=== PATIENT | male | born 1990 | race Caucasian/White ===

== ENCOUNTER 2022-03-09 16:57 | Inpatient (IN) | payer OTHER ==
[~2022-03-09] VITALS: Ht 177.8 cm; Wt 112.1 kg
--- NOTE | 2022-03-09 17:18 | NUR ---
c/o R hip pain pos dislocation while on rehabilitation. PLACED ON BED, AAOX4, BREATHING EVEN AND UNLABORED SATURATING AT 98%RA, IN PAIN 10/10 PS
[2022-03-09] MEDS ORDERED: HYDROMORPHONE INJ 2 MG/ML DISP.SYRIN IV ONE (17:30)
[2022-03-09] MEDS ORDERED: ONDANSETRON HCL/PF 4 MG/2 ML VIAL IVP ONE (17:30)
[2022-03-09] MEDS ORDERED: HYDROMORPHONE 1 MG/1 ML DISP.SYRIN ONE ×2 (17:39→19:10)
[2022-03-09] MEDS ORDERED: ONDANSETRON HCL/PF 4 MG/2 ML VIAL ONE ×2 (17:39→19:15)
--- NOTE | 2022-03-09 17:52 | NUR ---
X-RAY TECH AT BEDSIDE
[2022-03-09] MEDS ORDERED: PROPOFOL 20 ML IV ONE (18:16)
--- NOTE | 2022-03-09 18:23 | NUR ---
CLOSE REDUCTION OF RIGHT HIP DONE BY DR WILBURN WITH DIPRIVAN 200MG IN 4 DIVIDED DOSE. BP-163/98, OK-73, SATS- 99%. SPONSORSHIP MANAGER. AT BEDSIDE.
[2022-03-09] MEDS ORDERED: PROPOFOL 200 MG/20 ML VIAL IV ONE ×3 (18:30→19:00)
--- NOTE | 2022-03-09 18:52 | NUR ---
SWAB FOR COVID19 SENT TO LAB
[2022-03-09] MEDS ORDERED: ONDANSETRON HCL/PF - ER 4 MG/2 ML VIAL IV ONE (19:30)
[2022-03-09] MEDS ORDERED: HYDROMORPHONE 1 MG/1 ML DISP.SYRIN IV ONE (19:30)
[2022-03-09] MEDS ORDERED: TEMAZEPAM 15 MG CAPSULE PO PRN (20:00)
[2022-03-09] MEDS ORDERED: ENOXAPARIN SODIUM 40 MG/0.4 ML DISP.SYRIN SQ SCH (20:00)
[2022-03-09] MEDS ORDERED: MAG HYDROX/AL HYDROX/SIMETH 30 ML UDC PO PRN (20:00)
[2022-03-09] MEDS ORDERED: IV NS 0.9% 1,000 ML IV PRN (20:00)
[2022-03-09] MEDS ORDERED: MAGNESIUM HYDROXIDE 30 ML UDC PO PRN (20:00)
[2022-03-09] MEDS ORDERED: Z GUARD REMEDY 4 OZ OINT TP PRN (20:00)
[2022-03-09] MEDS ORDERED: HYDROCODONE/APAP 5/325MG TABLET PO PRN (20:00)
[2022-03-09 20:37] LABS: BASOPHILS % (AUTO) 0.8 % (0.0-2.0); CALCIUM, SERUM 8.6 mg/dL (8.5-10.1); CREATININE 1.4 mg/dL (0.6-1.3); EOSINOPHILS % (AUTO) 1.2 % (0.0-6.0); HEMATOCRIT 41 % (39-51); HEMOGLOBIN 13.3 g/dL (13.5-17.5); LYMPHOCYTES # (AUTO) 1.7 K/uL (0.8-4.8); LYMPHOCYTES % (AUTO) 38.4 % (20.0-44.0); MEAN CORPUSCULAR HGB CONC 32 g/dl (31.0-36.0); MEAN CORPUSCULAR VOLUME 84 fL (80-96); MONOCYTES # (AUTO) 0.4 K/uL (0.1-1.30); MONOCYTES % (AUTO) 8.8 % (2.0-12.0); NEUTROPHILS # (AUTO) 2.2 K/uL (1.8-8.9); NEUTROPHILS % (AUTO) 50.8 % (43.0-81.0); PLATELET COUNT (AUTO) 242 K/uL (150-450); POTASSIUM 2.9 mmol/L (3.5-5.1); RED BLOOD CELL COUNT(AUTO) 4.95 MIL/uL (4.5-6.0); WHITE BLOOD COUNT (AUTO) 4.4 K/uL (4.3-11.0)
[2022-03-09 20:38] LABS: CALCIUM, SERUM 8.7 mg/dL (8.5-10.1); CREATININE 1.3 mg/dL (0.6-1.3); POTASSIUM 2.9 mmol/L (3.5-5.1)
[2022-03-09 20:43] LABS: ALBUMIN 3.9 g/dL (3.4-5.0); BILIRUBIN,TOTAL 0.4 mg/dL (0.2-1.0); TOTAL PROTEIN, SERUM 7.9 g/dL (6.4-8.2)
--- NOTE | 2022-03-09 21:01 | NUR ---
BED 321-2
--- NOTE | 2022-03-09 21:19 | NUR ---
REPORT GIVEN TO SHARITA RN ROOM 321-2 FOR HEMAL
--- NOTE | 2022-03-09 22:00 | NUR ---
NOC RN NOTE PATIENT VERY UPSET UPON ARRIVAL, WANTING TO TALK TO CHARGE NURSE AND TO QUOTE "I WANT TO TALK TO WHOEVER IS IN CHARGE. I AM GOING TO FILE A COMPLAINT SO THEY KNOW THAT I AM SERIOUS. I WILL HAVE MY CNC OPERATOR PROGRAMMER COME HERE" MADE CHARGE NURSESTEPHANIE TALKED WITH PATIENT. WILL LET NURSING SYRUP MAKER COOK AWARE ABOUT SITUATION.
[2022-03-09] MEDS: ONDANSETRON HCL/PF 4 MG/2 ML VIAL IVP PRN (22:13)
[2022-03-09] MEDS: MORPHINE SULFATE INJ 2 MG/ML DISP.SYRIN IV PRN (22:14)
--- NOTE | 2022-03-09 23:00 | NUR ---
NOC RN NOTE NURSING GROUNDSKEEPER SUPERVISOR, JIM RIVERA AWARE OF SITUATION AND TALKED TO PATIENT. PER NURSING GROUNDSKEEPER SUPERVISOR, PATIENT JUST WANTS TO FILE AN OFFICIAL COMPLAINT. WILL FILL OUT A RISK INCIDENT REPORT.
--- NOTE | 2022-03-09 23:40 | NUR ---
NOC RN NOTE MED RECON DONE. PATIENT BEEN ASKING FOR HIS DOVATO 50-300MG HIV MEDICATION BUT WE DO NOT HAVE IT ON THE FLOOR. EVEN LOOKED UP THE SUB MEDICATION PATIENT REQUESTED TIVICAY DESCOVY OR TRUVADA. PATIENT MADE AWARE THAT WE WILL NOT HAVE IT TILL THE AM SINCE PHARMACY IS THE ONE TO DISPENSE IT, PATIENT FAIRLY UPSET. MATERIALS PLANNING MANAGER IS AWARE AND SAID THE SAME THING.
[2022-03-09] MEDS ORDERED: DOCU100C36 PO (23:50)
[2022-03-09] MEDS ORDERED: IBUP-1955 PO (23:50)
[2022-03-09] MEDS ORDERED: CHLO25TA2 PO (23:50)
[2022-03-09] MEDS ORDERED: DOLU1TAB2 PO (23:50)
[2022-03-09] MEDS ORDERED: ONDA-97 PO (23:50)
[2022-03-09] MEDS ORDERED: D-AM5CAP2 PO (23:50)
[2022-03-09] MEDS ORDERED: PREG150C PO (23:50)
[2022-03-09] MEDS ORDERED: HYDR-3980 PO (23:50)
[2022-03-09] MEDS ORDERED: ASPI-1169 PO (23:50)
[2022-03-09] MEDS ORDERED: DEXL60CA3 PO (23:50)
[2022-03-09] MEDS ORDERED: ECON15CR2 TP (23:50)
[2022-03-09] MEDS ORDERED: FLUN25SP NS (23:50)
[2022-03-10] MEDS ORDERED: FLUNISOLIDE NS SCH
[2022-03-10] MEDS ORDERED: ZOLPIDEM TARTRATE 5 MG TABLET PO PRN (00:30)
--- NOTE | 2022-03-10 00:49 | NUR ---
NOC RN NOTE GIVEN AMBIEN 5MG BESIDE THE FACT PATIENT IS NPO POST [place] FOR PROCEDURE PER PATIENT REQUEST. COW TESTER LUDWIN CLAY DNP AWARE. CHARGE NURSE AWARE WELL AND OK'D IT.
--- NOTE | 2022-03-10 00:53 | NUR ---
NOC RN NOTE PATIENT NOT WANTING TO SIGN CONSENT FORM FOR PROCEDURE TOMORROW NOT BEFORE TALKING TO DOCTOR YORDAN. NURSING SPONGE PRESS OPERATOR, JIM RIVERA AWARE.
--- NOTE | 2022-03-10 01:04 | NUR ---
ADMISSION RN NOTE PATIENT BROUGHT UP IN UNIT AT AROUND 2140 ACCOMPANIED BY 2 ER PERSONNELS. A/OX4. PATIENT WAS VERY UPSET UPON ADMISSION AND WANTING TO FILE COMPLAINT-- CHARGE NURSE AND NURSING INDUSTRIAL GAS FITTER TALKED TO THE PATIENT AND THERAPEUTIC COMMUNICATION WAS DONE. NO S/S OF APPARENT DISTRESS ON ROOM AIR AND C/O PAIN ON HIS R. HIP-- MEDICATED. IV ACCESS ON LEFT AC #20G-- STARTED ON NS @75MLS/HR ORDERED. PATIENT WISHING TO BE FULL CODE. NEW ID BAND ON PATIENT. ORIENTED IN THE UNIT AND THE USED OF CALL LIGHT. PATIENT BELONGINGS CHECKED. IN FOR CLOSED REDUCTION IN THE AM. PATIENT AWARE OF NPO STATUS. WILL CONTINUE WITH THE PLAN OF CARE FOR PATIENT.
[2022-03-10] MEDS ORDERED: POTASSIUM CHLORIDE 10 MEQ/50 ML PREMIXED IVPB FOR PERIPHERAL LINE IV ONE (04:30)
[2022-03-10] MEDS: ONDANSETRON HCL/PF 4 MG/2 ML VIAL IVP PRN (04:48)
[2022-03-10] MEDS: MORPHINE SULFATE INJ 2 MG/ML DISP.SYRIN IV PRN (04:49)
[2022-03-10 07:00] VITALS: BP 136/85
--- NOTE | 2022-03-10 07:14 | NUR ---
CALLED PHARMACY AT THIS TIME IN REGARDS TO THE HOME MEDICATION OF PATIENT (DOVATO) PER PHARMACY THEY DO NOT CARRY THE MEDICATION AND THE BEST IS FOR PATIENT HAVE SOMEONE BRING HIM HIS MEDICATION. I TOLD PHARMACY THAT PER PATIENT NO ONE IS ABLE TO BRING IT IN THE HOSPITAL AND THAT HAS BEEN THE CONCERN OF HIM SINCE LAST NIGHT. PHARMACIST DID SAY THEY WILL FIND OUT WHAT OTHER MEDICATION THEY COULD GIVE INSTEAD OF DOVATO. PHARMACY TO CALL AGAIN.
[2022-03-10 07:19] LABS: BASOPHILS % (AUTO) 0.6 % (0.0-2.0); EOSINOPHILS % (AUTO) 4.2 % (0.0-6.0); HEMATOCRIT 43 % (39-51); HEMOGLOBIN 13.6 g/dL (13.5-17.5); LYMPHOCYTES # (AUTO) 2.1 K/uL (0.8-4.8); MEAN CORPUSCULAR HGB CONC 32 g/dl (31.0-36.0); MEAN CORPUSCULAR VOLUME 85 fL (80-96); MONOCYTES # (AUTO) 0.6 K/uL (0.1-1.30); MONOCYTES % (AUTO) 13.2 % (2.0-12.0); NEUTROPHILS # (AUTO) 1.6 K/uL (1.8-8.9); PLATELET COUNT (AUTO) 203 K/uL (150-450); RED BLOOD CELL COUNT(AUTO) 5.04 MIL/uL (4.5-6.0); WHITE BLOOD COUNT (AUTO) 4.6 K/uL (4.3-11.0)
--- NOTE | 2022-03-10 07:22 | NUR ---
PHARMACIST CALLED AND THEY SAID THEY COULD DISPENSE TRUVADA BUT IT'S GOING TO BE 2 PILL SINCE TRUVADA IS COMBINATION OF THINGS. MADE PATIENT AWARE AND AGREED WITH PLAN. TO DISPENSE THIS AM PER PHARMACIST.
--- NOTE | 2022-03-10 07:57 | NUR ---
hallie rn closing report given to Shelby for continuity of patient care.
--- NOTE | 2022-03-10 08:00 | NUR ---
RN OPENING NOTE PATIENT RECEIVED IN BED, AO X 4, ABLE TO RESPONDS ALL STIMULI. IN NO ACUTE DISTRESS NOTED. RESPIRATORY EVEN AND UNLABORED ON ROOM AIR. SKIN IS WARM TO TOUCH, KEEP CLEAN/DRY. PATIENT MENTIONED THAT HE MISSED DOVATO INTAKE SINCE BEEN YESTERDAY. PHARMACY SAID DOVATO IS NOT AVAILABLE AND SUBSTITUTE MEDICATIONS IS NOT CLARIFIED WITH MD YET AT THIS TIME, INFORMED PATIENT AND HE UNDERSTOOD. KEPT ELEVATED HOB FOR ENSURE AIRWAY AND ASPIRATION PRECAUTION, ALSO LOWEST POSITION OF THE BED, S/R UP X 2, BED ALARM IS ON AT ALL THE TIMES. ALL SAFETY PRECAUTION APPLIED. CALL LIGHT WITHIN REACH, WILL CONTINUE TO MONITOR.
[2022-03-10 08:02] LABS: CALCIUM, SERUM 8.3 mg/dL (8.5-10.1); MAGNESIUM 2.4 mg/dL (1.8-2.4); PHOSPHORUS 3.3 mg/dL (2.5-4.9); POTASSIUM 3.6 mmol/L (3.5-5.1)
--- NOTE | 2022-03-10 08:13 | NUR ---
INCIDENT REPORT SUBMITTED AT THIS TIME NURSING RESERVE OFFICER HAS SAID. ID: [id number].
[2022-03-10] MEDS ORDERED: PANTOPRAZOLE 40 MG VIAL IV SCH (09:00)
[2022-03-10] MEDS ORDERED: TENOFOVIR DISOPROXIL FUMARATE 300 MG TABLET PO SCH (09:00)
[2022-03-10] MEDS ORDERED: DOCUSATE SODIUM 100 MG CAPSULE PO SCH (09:00)
[2022-03-10] MEDS ORDERED: ASPIRIN 81 MG TAB.CHEW PO SCH (09:00)
[2022-03-10] MEDS ORDERED: ECONAZOLE NITRATE CREAM 15 GM TUBE TP SCH (09:00)
[2022-03-10] MEDS ORDERED: EMTRICITABINE 200 MG CAPSULE PO SCH (09:00)
--- NOTE | 2022-03-10 09:55 | NUR ---
PATIENT WENT TO OR FOR RIGHT HIP CLOSED REDUCTION PROCEDURE HOWEVER, ARGUED WITH OR NURSE/ROSIBEL THEN REFUSED PROCEDURE. PATIENT BACK TO HIS ROOM WITHOUT PROCEDURE.
--- NOTE | 2022-03-10 10:00 | NUR ---
DR. FARR SPOKE WITH PATIENT AT PATIENT'S ROOM AND PATIENT AGREED TO BE DONE FOR PROCEDURE.
[2022-03-10] MEDS ORDERED: MIDAZOLAM HCL 2 MG/2ML VIAL ONE (10:24)
--- NOTE | 2022-03-10 10:40 | NUR ---
PATIENT BACK FROM OR, REPORTED BY OR/NADINE. V/S: BP-151/95, P-54, R-18, T-97.5, [id number] IN ROOM AIR, IN STABLE CONDITION. DR. FARR PLACED ORDER D/C HOME, ONCE PATIENT STABLE CONDITION. WILL CONTINUE TO MONITOR. ORDERED LUNCH TRAY. WILL CONTINUE TO MONITOR.
[2022-03-10] MEDS ORDERED: HYDR-3980 PO (13:08)
[2022-03-10] MEDS ORDERED: PREGABALIN 25 MG CAPSULE PO ONE (14:00)
--- NOTE | 2022-03-10 14:45 | NUR ---
PATIENT LEFT FACILITY ACCOMPANIED BY STAFF, REFUSED WHEEL CHAIR AND MEDICATION LYRICA WHICH SUPPOSED TO TAKE AT 1400. ALSO PATIENT REFUSED PT EVALUATION HOWEVER, PATIENT STABLE GAIT WITH CRUTCHES, ABLE TO BED IN AND OUT BY HIM SELF. GIVEN DISCHARGE INSTRUCTION INCLUDE FOLLOW UP PRIMARY MD AND ORTHOPEDIC NEXT WEEK. PATIENT SIGNED ON THE EXT CARE AND BELONGINGS FORMS.
[2022-03-10] MEDS ORDERED: FLUTICASONE 220MCG 1 INHALER IH SCH (17:00)
[2022-03-10] MEDS ORDERED: FLUTICASONE PROPIONATE 16 GM BOTTLE NS SCH (17:00)
== END 2022-03-10 14:50 | disposition home or self-care (01) | DRG 560 ==
LOC: ER 17:00 → MED 21:24
PROVIDERS: ADMIT Nurse Practitioner Acute Care; ATTEND Nurse Practitioner Family
PROC: 0SW9XJZ Revision of Synthetic Substitute in Right Hip Joint, External Approach (ICD-10-PCS; principal; 2022-03-10)
DX: T84.020A Dislocation of internal right hip prosthesis, initial encounter (principal); S73.034A Other anterior dislocation of right hip, initial encounter; Z20.822 Contact with and (suspected) exposure to COVID-19; Z88.5 Allergy status to narcotic agent; Z88.8 Allergy status to other drugs, medicaments and biological substances; I10 Essential (primary) hypertension; X58.XXXA Exposure to other specified factors, initial encounter; Y92.531 Health care provider office as the place of occurrence of the external cause; Y92.9 Unspecified place or not applicable; Y79.2 Prosthetic and other implants, materials and accessory orthopedic devices associated with adverse incidents
CPT/HCPCS: 36415; 71045-TC; 72170-TC; 73501; 73502; 80048-TC; 80053-TC; 83735-TC; 84100-TC; 85025-TC; 85730-TC; 87081-TC; C9113; C9803; G0378; G0500; J1170; J1650; J2250; J2270; J2405; J2704; J3480; J3490; J7030

== ENCOUNTER 2022-12-27 13:05 | Emergency (ER) | payer OTHER ==
[~2022-12-27] VITALS: Ht 177.8 cm; Wt 112.5 kg
[~2022-12-27 13:05] MED LIST: ASPI-1169 PO; CHLO25TA2 PO; D-AM5CAP2 PO; DEXL60CA3 PO; DOCU100C36 PO; DOLU1TAB2 PO; ECON15CR2 TP; FLUN25SP NS; HYDR-3980 PO; IBUP-1955 PO; ONDA-97 PO; PREG150C PO
[2022-12-27] MEDS ORDERED: ONDANSETRON HCL/PF - ER 4 MG/2 ML VIAL IV ONE (14:30)
[2022-12-27] MEDS ORDERED: MORPHINE SULFATE INJ 2 MG/ML DISP.SYRIN IV ONE ×2 (14:30→19:30)
[2022-12-27] MEDS ORDERED: ONDANSETRON HCL/PF 4 MG/2 ML VIAL ONE (14:55)
[2022-12-27] MEDS ORDERED: MORPHINE SULFATE INJ 4 MG/ML DISP.SYRIN ONE (14:56)
[2022-12-27 14:57] LABS: BASOPHILS % (AUTO) 0.5 % (0.0-2.0); EOSINOPHILS # (AUTO) 0.1 K/uL (0.0-0.7); EOSINOPHILS % (AUTO) 0.9 % (0.0-6.0); HEMATOCRIT 47 % (39-51); HEMOGLOBIN 15.2 g/dL (13.5-17.5); LYMPHOCYTES # (AUTO) 2.7 K/uL (0.8-4.8); LYMPHOCYTES % (AUTO) 40.6 % (20.0-44.0); MEAN CORPUSCULAR HEMOGLOBIN 27 PG (26.0-33.0); MEAN CORPUSCULAR HGB CONC 32 g/dl (31.0-36.0); MEAN CORPUSCULAR VOLUME 85 fL (80-96); MONOCYTES # (AUTO) 0.5 K/uL (0.1-1.30); MONOCYTES % (AUTO) 7.5 % (2.0-12.0); NEUTROPHILS # (AUTO) 3.3 K/uL (1.8-8.9); NEUTROPHILS % (AUTO) 50.5 % (43.0-81.0); PLATELET COUNT (AUTO) 254 K/uL (150-450); RED BLOOD CELL COUNT(AUTO) 5.53 MIL/uL (4.5-6.0); WHITE BLOOD COUNT (AUTO) 6.6 K/uL (4.3-11.0)
[2022-12-27 15:07] LABS: CALCIUM, SERUM 8.9 mg/dL (8.5-10.1); CREATININE 1.1 mg/dL (0.6-1.3); POTASSIUM 4.1 mmol/L (3.5-5.1)
[2022-12-27] MEDS ORDERED: MORPHINE SULFATE INJ 2 MG/ML DISP.SYRIN ONE (19:43)
[2022-12-27 20:00] VITALS: BP 127/79; TEMP 98.1; O2SAT 100
[2022-12-27] MEDS ORDERED: MORPHINE SULFATE INJ 2 MG/ML DISP.SYRIN IV PRN (20:30)
[2022-12-28] MEDS ORDERED: MORPHINE SULFATE INJ 2 MG/ML DISP.SYRIN ONE (02:40)
== END 2022-12-28 03:22 | disposition short-term general hospital (02) ==
LOC: ER 13:31
DX: M24.451 Recurrent dislocation, right hip (principal); Z79.899 Other long term (current) drug therapy; Z98.890 Other specified postprocedural states; Z79.82 Long term (current) use of aspirin; Z20.822 Contact with and (suspected) exposure to COVID-19; Z60.2 Problems related to living alone; Z88.1 Allergy status to other antibiotic agents
CPT/HCPCS: 99285; 96374; 96375; 87426; 96376 ×2; 73502; 85025; 80048; 36415; J2270 ×3; J2405 ×2; C9803